=== PATIENT | female | born 1980 | race Caucasian/White ===

== ENCOUNTER → 2020-11-09 | Outpatient (CLI) | payer BC ==
[~2020-11-09] MED LIST: CAMBIA; DICLOFENAC; EPIN.3I IM; NORT10 PO; SPRINTEC; ZOLP10 PO
[2020-11-09 16:49] LABS: Source, Urine Clean Catch
[2020-11-09 19:23] LABS: Appearance, Urine Hazy (Clear); Bilirubin, Urine Neg (Neg); Blood, Urine 1+ (Neg); Color, Urine Yellow (P-Yellow); Glucose Qualitative, Urine Neg (Neg); Ketones, Urine Neg (Neg); Leukocyte Esterase, Urine 2+ (Neg); Nitrite, Urine Neg (Neg); Protein, Urine Neg (Neg); Specific Gravity, Urine 1.015 (1.003-1.022); Urobilinogen, Urine NORM (Normal)
[2020-11-09 20:08] LABS: White Blood Cells, Urine 25-50 /hpf (0-5)
[2020-11-09 20:09] LABS: Bacteria Mod /hpf; Red Blood Cells, Urine 0-2 /hpf (0-2); Squamous Epithelial Cells Few /hpf (Few)
== END | disposition home or self-care (01) ==
LOC: LAB SHORT 16:48
PROVIDERS: Obstetrics & Gynecology
DX: R30.9 Painful micturition, unspecified (principal)
CPT/HCPCS: 81001; 87077; 87086; 87186

== ENCOUNTER 2020-11-28 08:48 | Day surgery (SDC) | payer BC ==
[~2020-11-28] VITALS: Ht 160 cm; Wt 66.0 kg
[~2020-11-28 08:48] MED LIST changes: +DESV50 PO; +LAMO100 PO; +LATUDA20 M1 PO; +PROG100 PO; +Prinivil10 MG PO; +TESTOSTERONE60 GM TOP
--- NOTE | 2020-11-28 09:21 | NUR ---
Ambulatory in Day Surgery History, Chart, Medications and Allergies reviewed before start of procedure. Lungs clear T/O to Auscultation. Patient confirms NPO status and agrees with scheduled surgery. Pre-Op teaching done. Pt verbalizes understanding. Patient States Post-Procedure ride home has been arranged.
--- NOTE | 2020-11-28 18:32 | NUR ---
SHIFT SUMMARY PT ADMIT TO UNIT POST OP HYSTERECTOMY. ALERT AND ORIENTED. TOLERATING REGULAR DIET. VOIDING WELL. WAITING FOR POST VOID TO BE LESS THAN 100 MLS. PAIN CONTROLLED WITH PO PAIN MEDS. LAP SITES X3 WITH SCANT DRIED BLOOD. CAMELIA PAD CLEAN. PLAN TO DISCHARGE TONIGHT WHEN POST VOID IS LESS THAN 100 MLS.
[2020-11-28] MEDS ORDERED: DOCU100 PO (19:48)
[2020-11-28] MEDS ORDERED: OXYC5 PO (19:49)
[2020-11-28] MEDS ORDERED: ONDA4ODT MM (19:49)
[2020-11-28] MEDS ORDERED: IBUP800 PO (19:50)
--- NOTE | 2020-11-28 20:04 | NUR ---
DISCHARGE SUMMARY POD0 LAP ASSISTED VAGINAL HYSTERECTOMY, A/O X4, VSS, FINAL URINE TRIAL POST VOID RESIDUAL 74, TOLERATING PO, PAIN WELL MANAGED, IV ACCESS TO L AC WAS REMOVED AND NO OTHER IV ACCESS DEVIDE IN PLACE, PT AMBULATING INDEPENDENTLY. DISCUSSED DISCHARGE INSTRUCTIONS W/ PT INCLUDING HOME CARE, FOLLOW UP APPOINTMENTS, THINGS TO WATCH FOR, AND OUR CONTACT INFORMATION IF SHE HAS ANY ADDITIONAL QUESTIONS AFTER DISCHARGE. PT REPORTED HAVING NO QUESTIONS AT TIME OF DISCHARGE AFTER GOING OVER DISCHARGE PAPERWORK. PT LEFT W/ ALL PERSONAL POSESSION BY PRIVATE AUTO.
== END 2020-11-28 20:04 | disposition home or self-care (01) ==
LOC: ORSCMMR 08:48 → SURS 14:02 → ORSCMMR 20:04 → ORD 12-12 09:30 → ORSCMMR 12-12 09:30
PROVIDERS: Obstetrics & Gynecology
PROC: 0UT9FZZ Resection of Uterus, Via Natural or Artificial Opening With Percutaneous Endoscopic Assistance (ICD-10-PCS; principal; 2020-11-28 10:00)
DX: R87.810 Cervical high risk human papillomavirus (HPV) DNA test positive (principal); N86 Erosion and ectropion of cervix uteri; I10 Essential (primary) hypertension; F41.8 Other specified anxiety disorders; E78.5 Hyperlipidemia, unspecified; Z79.899 Other long term (current) drug therapy
CPT/HCPCS: 88307; A9270; J0171; J1100; J1580; J1885; J2250; J2370; J2405; J2704; J2710; J2765; J3010; J7120

== ENCOUNTER → 2021-01-12 | Outpatient (CLI) | payer BC ==
[~2021-01-12] MED LIST changes: +DOCU100 PO; +IBUP800 PO; +ONDA4ODT MM; +OXYC5 PO
[2021-01-12 19:07] LABS: Source, Urine Clean Catch
[2021-01-12 19:58] LABS: Appearance, Urine Clear (Clear); Bilirubin, Urine Neg (Neg); Blood, Urine Neg (Neg); Color, Urine Yellow (P-Yellow); Glucose Qualitative, Urine Neg (Neg); Ketones, Urine Neg (Neg); Leukocyte Esterase, Urine 2+ (Neg); Nitrite, Urine Neg (Neg); Protein, Urine Neg (Neg); Urobilinogen, Urine NORM (Normal)
[2021-01-12 20:13] LABS: Bacteria Rare /hpf; Red Blood Cells, Urine Not Seen /hpf (0-2); Squamous Epithelial Cells Rare /hpf (Few)
== END | disposition home or self-care (01) ==
LOC: LAB 16:30 → LAB SHORT 16:30
PROVIDERS: Obstetrics & Gynecology
DX: R30.0 Dysuria (principal)
CPT/HCPCS: 81001; 87077; 87086; 87186

== ENCOUNTER → 2021-02-15 | Outpatient (CLI) | payer BC ==
[2021-02-15 17:01] LABS: Source, Urine Clean Catch
[2021-02-15 19:35] LABS: Appearance, Urine Clear (Clear); Bilirubin, Urine Neg (Neg); Blood, Urine Neg (Neg); Color, Urine Yellow (P-Yellow); Glucose Qualitative, Urine Neg (Neg); Ketones, Urine Neg (Neg); Leukocyte Esterase, Urine 2+ (Neg); Nitrite, Urine Neg (Neg); Protein, Urine Neg (Neg); Specific Gravity, Urine 1.005 (1.003-1.022); Urobilinogen, Urine NORM (Normal)
[2021-02-15 19:52] LABS: Red Blood Cells, Urine 0-2 /hpf (0-2)
[2021-02-15 19:53] LABS: Bacteria Rare /hpf; Squamous Epithelial Cells Rare /hpf (Few)
== END | disposition home or self-care (01) ==
LOC: LAB 16:54 → LAB SHORT 16:54
PROVIDERS: Obstetrics & Gynecology
DX: N39.0 Urinary tract infection, site not specified (principal)
CPT/HCPCS: 81001; 87077; 87086; 87186

== ENCOUNTER → 2023-01-16 | Outpatient (CLI) | payer BC | LOC: LAB SHORT 08:48 → LAB 08:48 | DX: D48.5 Neoplasm of uncertain behavior of skin (principal) | CPT/HCPCS: 88305 ==